=== PATIENT | female | born 1960 | race American Indian/Alaskan Native ===

== ENCOUNTER 2021-03-17 13:28 | Emergency (ER) | payer OTHER, MEDICARE ==
[2021-03-17 13:58] VITALS: BP 169/95
[2021-03-17] MEDS ORDERED: ACETAMINOPHEN 325 MG TAB PO ONE (14:07)
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
== END 2021-03-17 16:07 | disposition home or self-care (01) ==
LOC: ED 13:28
DX: M54.2 Cervicalgia (principal); R07.89 Other chest pain; M54.5 Low back pain; I10 Essential (primary) hypertension; F17.200 Nicotine dependence, unspecified, uncomplicated; Z98.51 Tubal ligation status; Z79.899 Other long term (current) drug therapy; V49.49XA Driver injured in collision with other motor vehicles in traffic accident, initial encounter; Y93.89 Activity, other specified; Y92.488 Other paved roadways as the place of occurrence of the external cause; Y99.8 Other external cause status
CPT/HCPCS: 71046; 72040; 72072; 99283